=== PATIENT | female | born 1990 | race Caucasian/White ===

== ENCOUNTER 2020-12-16 17:37 | Emergency (ER) | payer SELFPAY ==
[~2020-12-16] VITALS: Ht 162.6 cm; Wt 150.0 kg
[2020-12-16 18:50] LABS: BILIRUBIN,URINE NEGATIVE (NEG); CLARITY,URINE CLEAR; COLOR,URINE YELLOW; NITRITE,URINE NEGATIVE (NEG); PH,URINE 5.5 (<5.0-8.0); PROTEIN,URINE NEGATIVE (NEG-TRACE); UROBILINOGEN,URINE 0.2 mg/dL (0.2 mg/dL)
[2020-12-16 19:03] LABS: BACTERIA,URINE FEW /HPF (0-FEW)
--- NOTE | 2020-12-16 19:17 | ED.ADGEN ---
Past Medical History Past Medical History: Bipolar, Depression, Hypertension, Ovarian Cyst Past Surgical History: Cholecystectomy Smoking Status: Never Smoker Alcohol Use: None General Adult EDM: Chief Complaint: PELVIC PAIN HPI: HPI: Patient is a 30-year-old female with past medical history of ovarian cyst, depression, bipolar disorder who presents to the emergency room complaining of right pelvic pain. Patient states this feels similar to when she has had ovarian cysts in the past. She is on control currently and has been on it for the last 6 weeks. She states this pain started suddenly yesterday and has been intermittent since then. She states that it all hit her suddenly and it is very painful. She has tried tramadol at home without any relief. She is on tramadol for her chronic back pain. She denies any vomiting, diarrhea, decreased appetite, vaginal discharge, vaginal bleeding, urinary symptoms. Review of Systems: Review of Systems: Complete ROS is negative unless otherwise documented in HPI Current Medications: Current Medications Medications (Trade) Dose Ordered Sig/Alysha Start Time Stop Time Status Last Admin Dose Admin Acetaminophen (Tylenol) 1,000 mg 1X ONCE 12/16/20 20:45 12/16/20 20:46 DC 12/16/20 21:26 1,000 MG Hyoscyamine (Anaspaz) 0.125 mg 1X PRN 12/16/20 20:45 12/16/20 23:00 12/16/20 21:26 0.125 MG Info (CONTRAST GIVEN -- Rx MONITORING) 1 each PRN DAILY PRN 12/16/20 21:30 12/18/20 21:29 Iohexol (Omnipaque 240 Mg/ml) 30 ml 1X ONCE 12/16/20 21:15 12/16/20 21:16 DC 12/16/20 21:15 30 ML Iohexol (Omnipaque 300 Mg/ml) 75 ml 1X ONCE 12/16/20 21:15 12/16/20 21:16 DC 12/16/20 21:15 75 ML Ketorolac Tromethamine (Toradol Im) 60 mg 1X ONCE 12/16/20 19:00 12/16/20 19:21 DC 12/16/20 19:24 60 MG Allergies: Allergies: Allergies Coded Allergies Type Severity Reaction Last Updated Verified No Known Drug Allergies 12/16/20 No Physical Exam: PE: General: Awake, alert, NAD. Well Nourished, well hydrated. Cooperative HEENT: Atraumatic, EOMI, PERRL, airway patent, moist oral mucosa Neck: Supple, trachea midline Respiratory: CTA bilaterally, normal effort, no wheezing/crackles CV: RRR, no murmur, cap refill <2 GI: Soft, nondistended, nontender, no masses MSK: No obvious deformities Skin: Warm, dry, intact Neuro: A&O x3, speech NL, sensory and motor grossly intact, no focal deficits Psych: Normal affect, normal mood, not suicidal or homicidal Current Patient Data: Labs: Laboratory Tests Test 12/16/20 18:30 12/16/20 18:32 12/16/20 21:10 Urine Collection Type Unknown Urine Color Yellow Urine Clarity Clear Urine pH 5.5 (<5.0-8.0) Urine Specific Ideal >=1.030 (1.000-1.030) Urine Protein Negative mg/dL (NEG-TRACE) Urine Glucose (UA) Negative mg/dL (NEG) Urine Ketones (Stick) Negative mg/dL (NEG) Urine Blood Negative (NEG) Urine Nitrite Negative (NEG) Urine Bilirubin Negative (NEG) Urine Urobilinogen Dipstick 0.2 mg/dL (0.2 mg/dL) Urine Leukocyte Esterase Negative (NEG) Urine RBC 1-2 /HPF (0-2) Urine WBC 1-4 /HPF (0-4) Urine Squamous Epithelial Cells Mod /LPF Urine Bacteria Few /HPF (0-FEW) Urine Mucus Mod /LPF POC Urine HCG, Qualitative Hcg negative (Negative) White Blood Count 13.2 x10^3/uL (4.0-11.0) H Red Blood Count 4.37 x10^6/uL (3.50-5.40) Hemoglobin 9.7 g/dL (12.0-15.5) L Hematocrit 31.1 % (36.0-47.0) L Mean Corpuscular Volume 71 fL (79-100) L Mean Corpuscular Hemoglobin 22 pg (25-35) L Mean Corpuscular Hemoglobin Concent 31 g/dL (31-37) Red Cell Distribution Width 17.5 % (11.5-14.5) H Platelet Count 386 x10^3/uL (140-400) Neutrophils (%) (Auto) 72 % (31-73) Lymphocytes (%) (Auto) 23 % (24-48) L Monocytes (%) (Auto) 3 % (0-9) Eosinophils (%) (Auto) 1 % (0-3) Basophils (%) (Auto) 1 % (0-3) Neutrophils # (Auto) 9.5 x10^3/uL (1.8-7.7) H Lymphocytes # (Auto) 3.1 x10^3/uL (1.0-4.8) Monocytes # (Auto) 0.4 x10^3/uL (0.0-1.1) Eosinophils # (Auto) 0.1 x10^3/uL (0.0-0.7) Basophils # (Auto) 0.1 x10^3/uL (0.0-0.2) Platelet Estimate Adequate (ADEQUATE) Polychromasia Slight Hypochromasia Mod Basophilic Stippling Present Anisocytosis Slight Microcytosis Mod Stomatocytes Few Sodium Level 137 mmol/L (136-145) Potassium Level 3.6 mmol/L (3.5-5.1) Chloride Level 103 mmol/L (98-107) Carbon Dioxide Level 24 mmol/L (21-32) Anion Gap 10 (6-14) Blood Urea Nitrogen 17 mg/dL (7-20) Creatinine 1.0 mg/dL (0.6-1.0) Estimated GFR (Cockcroft-Gault) 66.0 BUN/Creatinine Ratio 17 (6-20) Glucose Level 146 mg/dL (70-99) H Calcium Level 8.5 mg/dL (8.5-10.1) Total Bilirubin 0.2 mg/dL (0.2-1.0) Aspartate Amino Transferase (AST) 13 U/L (15-37) L Alanine Aminotransferase (ALT) 23 U/L (14-59) Alkaline Phosphatase 105 U/L (46-116) Total Protein 7.7 g/dL (6.4-8.2) Albumin 3.2 g/dL (3.4-5.0) L Albumin/Globulin Ratio 0.7 (1.0-1.7) L Laboratory Tests 12/16/20 21:10 Laboratory Tests 12/16/20 21:10 Vital Signs: Vital Signs Date Time Temp Pulse Resp B/P (MAP) Pulse Ox O2 Delivery O2 Flow Rate FiO2 2/4/21 21:54 86 96 12/16/20 17:50 97.1 137/89 (105) Room Air 97.1 EKG: EKG: [] Heart Score: Risk Factors: Risk Factors: DM, Current or recent (<one month) smoker, HTN, HLP, family history of CAD, obesity. Risk Scores: Score 0 - 3: 2.5% MACE over next 6 weeks - Discharge Home Score 4 - 6: 20.3% MACE over next 6 weeks - Admit for Clinical Observation Score 7 - 10: 72.7% MACE over next 6 weeks - Early Invasive Strategies Radiology/Procedures: Radiology/Procedures: [] Course & Med Decision Making: Course & Med Decision Making Pertinent Labs and Imaging studies reviewed. (See chart for details) Patient is 30-year-old female who presents to the emergency room complaining of right-sided pelvic pain. She does not have any associated abdominal symptoms. She does not have any urinary symptoms. She denies any concerns for STDs and does not want to be checked at this time. Ultrasound will be ordered to rule out ovarian torsion. Patient was given Toradol for pain. Patient states toradol didn't help. Uterus and ovaries appear normal on Ultrasound. Acute appendicitis is less likely given no vomiting, anorexia, fever, diarrhea, however given patient's pain will order a CT to rule out acute appendicitis. CT is un remarkable. Patient's test results and vitals while in the ED were fully reviewed and discussed with the patient. Patient is stable and at this time does not need admission to the hospital. We have discussed strict return precautions and the importance of following up with their Primary Care Physician. Patient stated understanding and was given an opportunity to ask any questions. Patient is in agreement with plan. Dragon Disclaimer: Dragon Disclaimer: This electronic medical record was generated, in whole or in part, using a voice recognition dictation system. Departure Departure Impression: Primary Impression: Abdominal pain Disposition: 01 DC HOME SELF CARE/HOMELESS Condition: STABLE Referrals: UNKNOWN PCP NAME (PCP) Patient Instructions: Abdominal Pain (Nonspecific) ISABELL GUEVARA MD Dec 16, 2020 19:17
[2020-12-16] MEDS: KETOROLAC 60 MG/2 ML VIAL. IM ONE (19:24)
--- NOTE | 2020-12-16 21:02 | RAD ---
Exam: Ultrasound pelvis Indication: Right pelvic pain, torsion? Technique: Real-time grayscale and color Doppler images of the pelvis were obtained by the department chief clinical officer. Comparisons: None FINDINGS: Uterus measures 8.1 x 4.5 x 3.6 cm. Endometrium measures 1 mm in thickness. Right ovary measures 2.7 x 2.1 x 1.7 cm. Vascular flow identified within the right ovary. Left ovary measures 2.6 x 2.0 x 1.6 cm. Normal sonographic appearance of the ovaries bilaterally. No free fluid identified within the pelvis. IMPRESSION: No evidence for right ovarian torsion. Normal sonographic appearance of the uterus and ovaries. Electronically signed by: Bj Araiza MD (12/16/2020 8:59 PM) JOSE
[2020-12-16] MEDS: IOHEXOL 240 MG/ML 50ML VIAL. PO ONE (21:15)
[2020-12-16] MEDS: IOHEXOL 300 MG/ML 100ML VIAL. IV ONE (21:15)
[2020-12-16] MEDS: HYOSCYAMINE 0.125 MG TAB.RAPDIS PO PRN (21:26)
[2020-12-16] MEDS: ACETAMINOPHEN 500 MG TABLET PO ONE (21:26)
[2020-12-16 21:28] LABS: BASO # 0.1 x10^3/uL (0.0-0.2); BASO % 1 % (0-3); EOS # 0.1 x10^3/uL (0.0-0.7); EOS % 1 % (0-3); HEMATOCRIT 31.1 % (36.0-47.0); HEMOGLOBIN 9.7 g/dL (12.0-15.5); LYMPH # 3.1 x10^3/uL (1.0-4.8); LYMPH % 23 % (24-48); MEAN CORPUSCULAR HEMOGLOBIN 22 pg (25-35); MEAN CORPUSCULAR HGB CONC 31 g/dL (31-37); MEAN CORPUSCULAR VOLUME 71 fL (79-100); MONO # 0.4 x10^3/uL (0.0-1.1); MONO % 3 % (0-9); NEUT # 9.5 x10^3/uL (1.8-7.7); NEUT % 72 % (31-73); PLATELET COUNT 386 x10^3/uL (140-400); RED BLOOD COUNT 4.37 x10^6/uL (3.50-5.40); RED CELL DISTRIBUTION WIDTH 17.5 % (11.5-14.5); WHITE BLOOD COUNT 13.2 x10^3/uL (4.0-11.0)
[2020-12-16] MEDS ORDERED: CONTRAST GIVEN. MC PRN (21:30)
[2020-12-16 21:33] LABS: CALCIUM 8.5 mg/dL (8.5-10.1); POTASSIUM 3.6 mmol/L (3.5-5.1)
[2020-12-16 21:41] LABS: ALBUMIN 3.2 g/dL (3.4-5.0); ALBUMIN/GLOBULIN RATIO 0.7 (1.0-1.7); TOTAL BILIRUBIN 0.2 mg/dL (0.2-1.0); TOTAL PROTEIN 7.7 g/dL (6.4-8.2)
[2020-12-16 22:09] LABS: ANISOCYTOSIS SLIGHT; HYPOCHROMIA MOD; MICROCYTOSIS MOD; PLT ESTIMATE ADEQUATE (ADEQUATE); POLYCHROMASIA SLIGHT; STOMATOCYTES FEW
--- NOTE | 2020-12-16 22:23 | RAD ---
Exam: CT abdomen and pelvis with contrast INDICATION: Abdominal pain, right lower quadrant TECHNIQUE: Sequential axial images through the abdomen and pelvis obtained following the administrati on of 75 mL of Omni 300 IV contrast. Sagittal and coronal reformatted images were reconstructed from the axial data and reviewed. Comparisons: None FINDINGS: Heart size is normal. No pericardial visualized lung bases are clear. No pleural effusion. Liver, spleen, pancreas, and adrenals are unremarkable. Gallbladder surgically absent. No perinephric inflammation or hydronephrosis. No renal or ureteral calculi are identified. Bladder is distended and appears thin-walled. Uterus not enlarged. No abnormal adnexal mass. Large and small bowel are unremarkable. Appendix is nonidentified. No free intra-abdominal air or flu id. No obstruction. Abdominal aorta has a normal course and caliber. No enlarged intra-abdominal lymph nodes are identified. IMPRESSION: 1. Appendix is not identified. No inflammatory changes right lower quadrant to suggest acute appendi citis. 2. No acute process identified within the abdomen or pelvis. Exposure: One or more of the following in the visualized dose reduction techniques were utilized for this examination: 1. Automated exposure control 2. Adjustment of the MA and/or KV according to patient size 3. Use of iterative of reconstructive technique Electronically signed by: Bj Araiza MD (12/16/2020 10:21 PM) [facility]
[2020-12-16 22:28] VITALS: BP 137/92
== END 2020-12-16 22:44 | disposition home or self-care (01) ==
LOC: ER 17:37
DX: R10.9 Unspecified abdominal pain (principal); R10.2 Pelvic and perineal pain; F31.9 Bipolar disorder, unspecified; I10 Essential (primary) hypertension; Z90.49 Acquired absence of other specified parts of digestive tract
CPT/HCPCS: 36415; 74177; 76856; 80053; 81001; 81025; 85025; 96372; 99285; J1885; Q9966; Q9967